=== PATIENT | female | born 1975 | race African-American/Black ===

== ENCOUNTER 2020-11-27 20:31 | Emergency (ER) | payer SELFPAY ==
[~2020-11-27 20:31] MED LIST: Iopamidol 370 76% 100 ML VIAL ONE
[2020-11-27 21:51] LABS: Hemoglobin 7.5 g/dL (12.0-16.0); Mean Corpuscular HGB CONC 27.7 g/dL (32.0-36.0); Mean Corpuscular Hemoglobin 20.5 pg (27.0-31.0); Mean Corpuscular Volume 73.9 fL (78.0-98.0); Mean Platelet Volume 9.6 fL (7.4-10.4); Platelet Count 178 thou/uL (130-400); RBC Distribution Width 20.1 % (11.5-14.5); Red Blood Cell (RBC) Count 3.66 mill/uL (4.20-5.40); White Blood Cell (WBC) Count 4.1 thou/uL (4.8-10.8)
[2020-11-27 21:52] LABS: Band 14 % (5-11); Burr Cells SLIGHT = 2-5 cells (100X) (0-1/hpf); Elliptocytes SLIGHT = 2-5 cells (100X) (0-1/hpf); Hypochromia MODERATE=16-30 cells (100X) (0-5/hpf); Lymphocytes 9 % (21-51); MDiff Complete? YES; Microcytosis MODERATE=15-30 cells (100X) (0-5/hpf); Monocytes 4 % (0-10); Myelocyte 5 % (0-0); Neutrophil 68 % (42-75); Ovalocytes SLIGHT = 2-5 cells (100X) (0-1/hpf); Platelet Morphology Comment Appears Adequate; Sickle Cells SLIGHT = 1-5 cells (100X) (None Seen); Tear Drops SLIGHT = 2-5 cells (100X) (0-1/hpf)
[2020-11-27 21:54] LABS: ALT (SGPT) 30 U/L (8-55); AST (SGOT) 84 U/L (5-34); Albumin 2.9 g/dL (3.5-5.0); Alkaline Phosphatase 52 U/L (40-110); Anion Gap 11 mmol/L (10-20); BUN (Urea Nitrogen) 9 mg/dL (7.0-18.7); Bilirubin, Total 0.4 mg/dL (0.2-1.2); Calc. Creatinine Clearance 0 mL/min (70-130); Calcium 8.3 mg/dL (7.8-10.44); Carbon Dioxide 27 mmol/L (22-29); Chloride 101 mmol/L (98-107); Globulin 3.8 g/dL (2.4-3.5); Glucose 133 mg/dL (70-105); Magnesium 1.9 mg/dL (1.6-2.6); Protein, Total 6.7 g/dL (6.0-8.3); Sodium 136 mmol/L (136-145)
[2020-11-27] MEDS ORDERED: Potassium Chloride 20 MEQ TAB ONE (22:17)
[2020-11-27] MEDS ORDERED: Ondansetron PF 4 MG/2 ML Vial ONE (22:17)
[2020-11-27] MEDS ORDERED: Albuterol Sulfate 2.5 mg/3 ml Neb ONE (23:02)
[2020-11-28 00:22] LABS: SARS-CoV-2 NAA Rapid Test DETECTED (NotDetected)
[2020-11-28] MEDS ORDERED: Albuterol Sulfate 2.5 mg/3 ml Neb ONE (03:01)
[2020-11-28] MEDS ORDERED: Acetaminophen 325 MG TAB ONE (03:01)
== END 2020-11-28 06:36 | disposition short-term general hospital (02) ==
LOC: NAV ERS 20:31
DX: U07.1 COVID-19 (principal); J12.82 Pneumonia due to coronavirus disease 2019; D64.9 Anemia, unspecified; E87.6 Hypokalemia; Z79.899 Other long term (current) drug therapy
CPT/HCPCS: 36415; 71045; 71275; 80053; 83605; 83735; 84484; 85025; 85379; 93005; 94640; 94760; 96374; 96375; J2405; J7611; Q9967; U0002